=== PATIENT | male | born 1950 | race Two or more races ===

== ENCOUNTER 2020-10-22 01:30 | Outpatient (CLI) | payer OTHER | END 2020-10-22 15:00 | disposition home or self-care (01) | LOC: PPH VACUNA 01:30 | PROVIDERS: ATTEND Emergency Medicine Pediatric Emergency Medicine | DX: Z23 Encounter for immunization (principal) ==

== ENCOUNTER 2020-11-12 | Outpatient (CLI) | payer OTHER | END 2020-11-12 08:46 | disposition home or self-care (01) | LOC: PPH VACUNA | PROVIDERS: ATTEND Emergency Medicine Pediatric Emergency Medicine | DX: Z23 Encounter for immunization (principal) ==

== ENCOUNTER 2021-10-17 09:00 | Outpatient (CLI) | payer OTHER | END 2021-10-17 09:15 | disposition home or self-care (01) | LOC: PPH VACUNA 09:00 | PROVIDERS: ATTEND Emergency Medicine Pediatric Emergency Medicine | DX: Z23 Encounter for immunization (principal) ==